=== PATIENT | male | born 1945 | race African-American/Black ===

== ENCOUNTER 2018-12-19 17:10 | Day surgery (SDC) ==
[2018-12-19 18:39] LABS: BASO# 0.06 X1000 (0.0-0.2); BASO% 1.1 % (0.0-0.8); EOS# 0.39 X1000 (0.0-0.7); EOS% 7.3 % (0.0-10.0); HEMOGLOBIN 12.6 g/dL (14.0-18.0); LYMPH# 2.04 X1000 (1.2-3.4); MCH 30.1 PG (27-31); MCHC 33.2 g/dL (33-37); MCV 90.9 FL (81-99); MONO# 0.49 X1000 (0.11-0.59); MONO% 9.1 % (1.7-9.3); MPV 10.1 FL (7.4-10.4); NEUT# 2.39 X1000 (1.4-6.5); NEUT% 44.5 % (42.2-75.2); PLT 232 X1000 (130-400); RBC 4.18 XMIL (4.7-6.1); RDW 12.7 % (11.5-14.5); WBC 5.37 X1000 (4.8-10.8)
--- NOTE | 2018-12-19 18:41 | Diag Imaging Result Doc PS360 ---
CHEST-2 VIEWS - 12/19/2018 INDICATION: cough COMPARISON: None FINDINGS: There is mild cardiomegaly. Pulmonary vascularity is top normal. No infiltrates or edema. No pneumothorax or pleural effusion. IMPRESSION: Cardiomegaly. Electronically signed by Major Peterson 12/19/2018 6:38 PM
[2018-12-19 19:01] LABS: AGAP 13; ALBUMIN 4.1 g/dL (3.5-5.0); ALKALINE PHOSPHATASE 91 U/L (32-122); BUN 15 mg/dL (8-22); CALCIUM 9.4 mg/dL (8.8-10.2); CHLORIDE 104 mmol/L (98-107); COSMO 286; CREATININE 0.9 mg/dL (0.7-1.2); ESTIMATED GFR > 60; GLUCOSE 176 mg/dL (70-104); GOT 53 U/L (10-34); GPT 92 U/L (10-44); POTASSIUM 4.4 mmol/L (3.5-5.1); SODIUM 141 mmol/L (136-145); TCO2 24 mmol/L (25-35); TOTAL PROTEIN 6.7 g/dL (6.3-8.3)
[2018-12-19] MEDS ORDERED: TYLENOL PO PRN ×2 (20:12→20:13)
[2018-12-19] MEDS ORDERED: AMBIEN PO PRN (20:12)
[2018-12-19] MEDS ORDERED: ZOFRAN IV PRN ×2 (20:12→20:13)
[2018-12-19] MEDS ORDERED: LASIX IV SCH (20:15)
[2018-12-19] MEDS ORDERED: LOVENOX SUBQ SCH (20:15)
--- NOTE | 2018-12-20 01:16 | HISTORY AND PHYSICAL ---
CHIEF COMPLAINT: Shortness of breath. HISTORY OF PRESENT ILLNESS: Patient is a 73-year-old male who denies any previous cardiac issues. States that he has increased work of breathing, shortness of breath, all with exertion. Notes that symptoms have been going on for 3 weeks. Denies any real chest pains. Does states he has a history of allergy. He is a nonsmoker. In fact, states he has never smoked. ALLERGIES: No known drug allergies. MEDICATIONS: No current active medication list. We will address when it is available. PAST MEDICAL HISTORY: He denies any previous cardiac issues. Denies congestive heart failure, COPD. REVIEW OF SYSTEMS: As noted above. Prior to 3 weeks, the patient states that he felt fine. No chest pain. No shortness of breath. No palpitations. Denies any dysuria, urinary frequency, urgency, hesitancy, polyuria or polydipsia. Denies any skin rashes, weight loss or weight gain. SOCIAL HISTORY: Patient is a nonsmoker, nondrinker. FAMILY HISTORY: Positive for COPD. PHYSICAL EXAMINATION: VITAL SIGNS: Temperature 98 degrees, pulse 96, respiratory 18, BP 142/85, saturation 97% on room air. GENERAL: Patient is awake, alert, very pleasant talk with. No current respiratory distress. HEENT: Normocephalic. NECK: Supple. CARDIOVASCULAR: Regular rate. CHEST: Clear. No crackles. No wheezing. ABDOMEN: Soft. EXTREMITIES: Trace edema to 1+ bilateral lower extremities. ASSESSMENT: 1. Hypertension. 2. Cardiomegaly. 3. Shortness of breath. 4. Elevated transaminases. 5. Hyperglycemia. 6. Pedal edema. PLAN: We will admit patient to the hospital, rule out [place]. Check a hemoglobin A1c as he does have an elevated blood sugar. We will check an echocardiogram as his BNP is elevated and he has pedal edema as well as cardiomegaly. He certainly could have congestive heart failure. We will place him on Lasix and we will follow. cc: Hector oJhnson MD
[2018-12-20 03:45] LABS: HEMATOCRIT 37.5 % (42.0-52.0); HEMOGLOBIN 12.5 g/dL (14.0-18.0); MCH 30.4 PG (27-31); MCHC 33.3 g/dL (33-37); MCV 91.2 FL (81-99); MPV 10.2 FL (7.4-10.4); RBC 4.11 XMIL (4.7-6.1); RDW 12.8 % (11.5-14.5); WBC 5.05 X1000 (4.8-10.8)
[2018-12-20 04:44] LABS: AGAP 12; ALBUMIN 3.9 g/dL (3.5-5.0); ALKALINE PHOSPHATASE 85 U/L (32-122); BUN 15 mg/dL (8-22); CALCIUM 9.5 mg/dL (8.8-10.2); CHLORIDE 107 mmol/L (98-107); COSMO 294; CREATININE 0.9 mg/dL (0.7-1.2); ESTIMATED GFR > 60; GLUCOSE 172 mg/dL (70-104); GOT 36 U/L (10-34); GPT 77 U/L (10-44); POTASSIUM 4.1 mmol/L (3.5-5.1); SODIUM 145 mmol/L (136-145); TCO2 26 mmol/L (25-35); TOTAL PROTEIN 6.3 g/dL (6.3-8.3)
[2018-12-20 04:45] LABS: HEMOGLOBIN A1C 6.4 % (4.8-6.0)
[2018-12-20 04:46] LABS: CHOLESTEROL 100 mg/dL (0-200); HDL 45 mg/dL (35-55); LDL 43 mg/dL; MAGNESIUM 1.8 mg/dL (1.5-2.7); TRIGLYCERIDES 59 mg/dL (39-160); VLDL 12 mg/dL
--- NOTE | 2018-12-20 08:30 | EKG Report ---
Test Performed on : 12/19/2018 7:26:14 PM Test Reason : shortness of breath Blood Pressure : / mmHG Vent. Rate : 087 BPM Atrial Rate : 087 BPM P-R Int : 184 ms QRS Dur : 166 ms QT Int : 432 ms P-R-T Axes : 060 004 106 degrees QTc Int : 519 ms Normal sinus rhythm. Left bundle branch block Abnormal ECG No previous ECGs available Unconfirmed Result
[2018-12-20] MEDS ORDERED: PATIENT'S OWN MED PO SCH (09:00)
[2018-12-20] MEDS ORDERED: GLUCOPHAGE PO SCH (09:00)
[2018-12-20] MEDS ORDERED: GLUCOTROL PO SCH (09:00)
[2018-12-20] MEDS ORDERED: ZANTAC PO SCH (09:00)
[2018-12-20] MEDS ORDERED: NORVASC PO SCH (09:00)
[2018-12-20] MEDS ORDERED: LIPITOR PO SCH (09:00)
[2018-12-20] MEDS ORDERED: THERA M PLUS PO SCH (09:00)
[2018-12-20] MEDS ORDERED: ASPIRIN EC PO SCH (09:00)
[2018-12-20] MEDS ORDERED: ZYRTEC PO SCH (09:00)
--- NOTE | 2018-12-20 13:00 | Diag Imaging Result Doc PS360 ---
EXAM: CT ANGIOGRM PULMONARY ARTERIES 12/20/2018 HISTORY: d dimer TECHNIQUE: This exam was performed using automated exposure control, adjustment of mA or kV according to patient size, and/or use of iterative reconstruction technique. COMMENT: 3-D MIPS were performed. There are no filling defects in the pulmonary arteries. The aorta is not well opacified but there is no evidence of aneurysm or dissection. There is a small left pleural effusion. There is dilatation of the left atrium and ventricle. No significant adenopathy is present. There is dependent atelectasis bilaterally and some slight increase in interstitial markings particularly in the lung bases. There is a tiny pulmonary nodule present on image 87 and the left lower lobe and an ill-defined opacity posterior laterally in the left upper lobe on image 56. There are spondylotic changes in the thoracic spine. There is no evidence of acute bony abnormality. IMPRESSION: Left pleural effusion. Mild cardiomegaly and interstitial pulmonary edema. No evidence of pulmonary emboli. Other nonacute findings as described. Electronically signed by Ned Villatoro 12/20/2018 12:58 PM
--- NOTE | 2018-12-20 15:14 | Extremity Venous Study ---
EXAM: Venous U/S Bilateral Legs 12/20/2018 HISTORY: d dimer TECHNIQUE: Compression venous ultrasound of the lower extremities with color Doppler flow COMMENT: The deep veins of the lower extremities are compressible and there is color Doppler flow. There is no evidence of deep venous thrombosis in the visualized superficial veins. IMPRESSION: No evidence of deep venous thrombosis. Electronically signed by Ned Villatoro 12/20/2018 3:11 PM
[2018-12-20 16:41] VITALS: BP 121/74
[2018-12-20] MEDS ORDERED: PRINIVIL PO SCH (21:00)
[2018-12-20] MEDS ORDERED: MINIPRESS PO SCH (21:00)
[2018-12-20] MEDS ORDERED: MELATONIN PO SCH (21:00)
--- NOTE | 2018-12-20 21:45 | PROVIDER DOCUMENTATION ---
This chart was entered by Felicia Auguste Scribe, acting as scribe for Jaren English MD. HPI-Respiratory General - General Chief Complaint: Cough Stated Complaint: SOB Time Seen by Provider: 12/19/18 18:00 Source: patient Allergies/Adverse Reactions: Patient Allergies Allergy/AdvReac Type Severity Reaction Status Date / Time No Known Allergies Allergy Verified 03/19/18 03:46 Home Medications: Home Medication List Medication Instructions Recorded Confirmed Last Taken Type ATORVAstatin [Lipitor] 40 mg PO DAILY 12/19/18 12/19/18 Unknown History Amlodipine Besylate 5 mg PO DAILY 12/19/18 12/19/18 Unknown History Aspirin [Aspirin EC] 81 mg PO DAILY 12/19/18 12/19/18 Unknown History Biotin 5,000 mcg PO DAILY 12/19/18 12/19/18 Unknown History Cetirizine HCl 10 mg PO DAILY 12/19/18 12/19/18 Unknown History Glipizide 20 mg PO QAM 12/19/18 12/19/18 Unknown History Lisinopril 40 mg PO HS 12/19/18 12/19/18 Unknown History Melatonin 10 mg PO QHS PRN 12/19/18 12/19/18 Unknown History Metformin HCl 850 mg PO TID 12/19/18 12/19/18 Unknown History Multivitamin [Tab-A-Taj] 1 tab PO DAILY 12/19/18 12/19/18 Unknown History Prazosin HCl 5 mg PO QHS 12/19/18 12/19/18 Unknown History Ranitidine HCl 150 mg PO BID 12/19/18 12/19/18 Unknown History Furosemide [Lasix] 20 mg PO DAILY PRN PRN #30 tab 12/20/18 Unknown Rx Potassium Chloride 10 meq PO DAILY PRN PRN #30 12/20/18 Unknown Rx tab.er.prt - History of Present Illness-Resp Nature of Presenting Problem: Pt is 73/m presenting to ED w/ SOB and cough w/ exertion only, for the last 3 weeks. He denies any chest pain. Pt has hx of seasonal allergies. Pt is a non- smoker. Quality of Pain: reports: none Severity in ED: reports: mild Onset/Duration: reports: other (2-3 weeks) Timing: reports: intermittent Exposure: reports: unknown cause Cough Quality/Degree: reports: dry cough (dry cough w/ exertion) Episode Frequency: other (w/ exertion) Current Respiratory Medication Therapy: Initiated none Modifying Factors: improves with: nothing Associated Symptoms: reports: cough, shortness of breath, short of breath. denies: chest pain/soreness, fever/chills, flu-like symptoms, wheezing Similar Symptoms Previously?: Yes Recently seen or treated by another doctor?: No Review of Systems - Adult - REVIEW OF SYSTEMS - ADULT Constitutional: reports: no symptoms reported. denies: chills, fever Eyes: reports: no symptoms reported Ears, Nose, Mouth & Throat: reports: no symptoms reported. denies: throat pain Cardiovascular: denies: chest pain Respiratory: reports: no symptoms reported Gastrointestinal: reports: no symptoms reported Genitourinary: reports: no symptoms reported Musculoskeletal: reports: no symptoms reported Integumentary: reports: no symptoms reported Neurological: reports: no symptoms reported. denies: dizziness/vertigo, headache/migraines Psychiatric: reports: no symptoms reported Endocrine: reports: no symptoms reported Hematologic/Lymphatic: reports: no symptoms reported Allergic/Immunologic: reports: no symptoms reported Past History - Adult - PAST MEDICAL HISTORY-ADULT Review of Records: reports: Old Records Reviewed, Nursing Assessment Review, Medications Reviewed, Social history reviewed & non-contributory. - SOCIAL HISTORY Smoking: denies, non-smoker Substance Use: none/never Alcohol Use Frequency: never Living Situation: family Physical Exam-General - PHYSICAL EXAM-ADULT Initial Vital Signs Reviewed: Yes - CONSTITUTIONAL General Appearance: appears well, alert, no apparent distress - EYES Eyes: PERRL/EOMI, pink conjunctivae - HEAD, EARS, NOSE, MOUTH & THROAT HENMT: normocephalic/atraumatic, moist mucous membranes - NECK Neck: non-tender, full range of motion, supple, normal inspection - RESPIRATORY Respiratory: chest non-tender, lungs clear, normal breath sounds. negative: respiratory distress, wheezing - CARDIOVASCULAR Cardiovascular: normal peripheral pulses, regular rate, rhythm, no edema, no gallop, no JVD, no murmur, other (Pt has 2+ edema lower extremities bilaterally) - LYMPHATIC Lymphatic: no adenopathy - MUSCULOSKELETAL Extremity: normal range of motion, non-tender, normal gait, normal inspection - SKIN Integumentary: normal color, warm/dry - NEUROLOGIC Neurologic: grossly normal - PSYCHIATRIC Psych/Mental Status: normal mood/affect, normal thought process, oriented x 3 Progress - PLAN OF CARE/RESULTS Progress/Plan/Lab Results: Orders Category Date Time Status Admit - [facility] Routine AdmDCTranf 12/19/18 20:12 Active Activity - Up with Assistance ORDERED Care 12/19/18 20:12 Active DVT/PE Risk Assess/Protocol [QM] ORDERED Care 12/19/18 20:12 Active Daily Weights 0500 Care 12/19/18 20:12 Active Intake and Output-Strict ORDERED Care 12/19/18 20:12 Active Notify MD if DIRECTED Care 12/19/18 20:12 Active Old records/chart to unit .From other facility Care 12/19/18 20:12 Active Vital Signs Order Q 4-HR ASSESS Care 12/19/18 20:12 Active Z-Document. for Tele Applied ORDERED Care 12/19/18 20:12 Completed Heart Healthy Diet Diet 12/19/18 20:13 Completed CHEST-2 VIEWS [RAD] Stat Exams 12/19/18 17:20 Completed A1C HGB W EST AVG GLUCOSE [CHEM] Routine Lab 12/20/18 02:52 Completed CBC WITH ELECTRONIC DIFF [HEME] Stat Lab 12/19/18 18:26 Completed CBC WITH NO DIFF [HEME] Routine Lab 12/20/18 02:52 Completed CK PROFILE [SP CHEM] Q8H Lab 12/19/18 18:26 Completed CK PROFILE [SP CHEM] Q8H Lab 12/20/18 02:52 Completed CK PROFILE [SP CHEM] Q8H Lab 12/20/18 11:11 Completed COMPREHENSIVE METABOLIC PANEL [CHEM] Routine Lab 12/20/18 02:52 Completed COMPREHENSIVE METABOLIC PANEL [CHEM] Stat Lab 12/19/18 18:26 Completed D-DIMER [COAG] Routine Lab 12/19/18 18:26 Completed LIPID PROFILE W/CALC LDL [LIPIDS] Routine Lab 12/20/18 02:52 Completed MAGNESIUM [CHEM] Routine Lab 12/20/18 02:52 Completed PRO B-NATRIURETIC PEPTIDE Stat Lab 12/19/18 18:26 Completed TROPONIN T Q8H Lab 12/20/18 02:52 Completed TROPONIN T Q8H Lab 12/20/18 11:11 Completed TROPONIN T Stat Lab 12/19/18 18:26 Completed TSH Routine Lab 12/20/18 02:52 Completed Acetaminophen [Tylenol] Med 12/19/18 20:12 Discontinued 650 mg PO Q6H PRN PRN Acetaminophen [Tylenol] Med 12/19/18 20:13 Discontinued 650 mg PO Q6H PRN PRN Enoxaparin [Lovenox] Med 12/19/18 20:15 Discontinued 30 mg SUBQ Q24H Furosemide [Lasix] Med 12/19/18 20:15 Discontinued 40 mg IV Q24H Ondansetron [Zofran] Med 12/19/18 20:13 Discontinued 4 mg IV Q4-6H PRN PRN Ondansetron [Zofran] Med 12/19/18 20:12 Discontinued 4 mg IV Q4H PRN PRN Zolpidem [Ambien] Med 12/19/18 20:12 Discontinued 5 mg PO HS PRN PRN Oxygen Device Routine Oth 12/19/18 20:12 Completed Pulse Oximetry Routine Oth 12/19/18 20:12 Completed Telemetry [OM.EQ] Routine Oth 12/19/18 20:12 Active EKG [EKG] Stat Ther 12/19/18 18:14 Draft Echo Spec/Color Dop W/O Contra Routine Ther 12/20/18 06:14 Completed Transfer/Admit Order [TRANSFER] Routine Transfer 12/19/18 20:17 Completed Result Diagrams: 12/20/18 02:52 12/20/18 02:52 - EKG 1 Time of EKG reading by physician:: 19:26 EKG Read and Signed by:: Jaren English EKG Interpretation (*Must complete 3 of following elements*): Abnormal (normal sinus rhythm, Left bundle branch block, Abnormal) Rate: 78 Rhythm: sinus [place]: normal QRS: normal - CONSULTS/PCP/HOSPITALIST Notification #1 *Consult/PCP/Hospitalist*: Dr. Johnson Time Discussed: 20:11 Consult Disposition: Admit Departure - Departure Date of Disposition Decision: 12/19/18 Time of Disposition Decision: 20:47 DIAGNOSIS: Edema extremities, Shortness of breath Acute on chronic heart failure Qualifiers: Heart failure type: unspecified Qualified Code(s): I50.9 - Heart failure, unspecified Disposition: ADMITTED INPATIENT 09 Certified Medical Emergency: Emergent Condition: Fair - Critical Care Note This patient required my direct & personal management of CC.: No Attestation - Physician/ KAREN Attestation Patient care was provided by Advanced Practice Provider:: No The physician spent face to face time with patient:: Yes Advanced Practice Provider documentation review:: Supervising physician onsite and consulted in the evaluation and care of this patient. The physician did have a face to face encounter with the patient. This chart was documented by the indicated scribe, (Felicia Auguste, [place]) and accurately reflects the services I performed and decisions made by me, Jaren English MD, as attested by the provider's signature.
--- NOTE | 2018-12-21 08:58 | DISCHARGE SUMMARY ---
ADMISSION DATE: 12/19/2018 DISCHARGE DATE: 12/20/2018 DISCHARGE DIAGNOSES: 1. Hypertension, stable. 2. Cardiomegaly, stable. 3. Elevated transaminases. 4. Hyperglycemia. 5. Diabetes with an A1c at 6.4. 6. High cholesterol. CONSULTATIONS: None. PROCEDURES: None. BRIEF HOSPITAL COURSE: The patient is a 73-year-old male who presented to the emergency department with shortness of breath. He was noted to have cardiomegaly on chest x-ray. He was admitted. His blood pressures were controlled. Echocardiogram was performed and reported as normal but I do not have full dictated report. Further workup for pulmonary emboli was also negative. The patient will be discharged home. He will continue his home medications. He is controlling his blood sugars, currently with an A1c at 6.4. Blood pressures are fairly well-controlled at home as well. He will follow up with his primary care provider, at the [facility], in 1-2 weeks, sooner if symptoms worsen or return. cc: Hector Johnson MD
--- NOTE | 2018-12-21 16:45 | ECHO REPORT ---
ORDER DATE: 12/20/2018 ECHOCARDIOGRAPHIC MEASUREMENTS: Interventricular septum 1.5 cm. Left ventricular posterior wall 1.5 cm. Diastolic diameter 5.6 cm. Left atrium 4.3 cm. Aorta 3.5 cm. SUMMARY OF THE TWO-DIMENSIONAL IMAGING: Aortic valve leaflets are trileaflet. Pulmonic valve was normal. Tricuspid valve was normal. Mitral valve leaflets are normal. There is left atrial enlargement. Left ventricle cavity size was normal. There is concentric left ventricular hypertrophy. Estimated ejection fraction of 20% associated with diastolic dysfunction. There is mild mitral regurgitation. Mild to moderate tricuspid regurgitation. Peak velocity across the tricuspid valve was 3.1 m/sec. Pulmonary artery systolic pressure of 49 mmHg. Peak velocity across the aortic valve less than 2 m/sec. By Doppler studies, there is no aortic stenosis or regurgitation. There is no pericardial effusion or obvious intracardiac mass or thrombus seen. cc: MD Hector Thomson MD
== END 2018-12-20 18:19 | disposition home or self-care (01) ==
LOC: P.ED 17:10 → P.MEDSURG 17:10 → P.MED 20:31 → P.MEDSURG 20:46 → P.MED 12-20 18:19
PROVIDERS: ATTEND Family Medicine
CPT/HCPCS: 71020; 71046; 71275; 80053; 80061; 82550; 82948; 83036; 83735; 83880; 84443; 84484; 85025; 85027; 85379; 93005; 93306; 93970; 94761; 96372; 96374; 99285; A9270; J1650; J1940; Q9967; XXXXX

== ENCOUNTER 2018-12-29 10:35 | Inpatient (IN) ==
[2018-12-29] MEDS ORDERED: ASPIRIN PO ONE ×2 (10:42→10:43)
--- NOTE | 2018-12-29 11:07 | Diag Imaging Result Doc PS360 ---
EXAM: CHEST-2 VIEWS HISTORY: CP TECHNIQUE: Two views COMPARISON: 12/19/2018 FINDINGS: The lungs are well expanded. The heart is mildly enlarged. The vessels are not distended. There are no infiltrates. No pleural effusions. IMPRESSION: Mild cardiomegaly. Electronically signed by Sergio Bray 12/29/2018 11:05 AM
[2018-12-29 11:11] LABS: BASO# 0.03 X1000 (0.0-0.2); BASO% 0.5 % (0.0-0.8); EOS# 0.07 X1000 (0.0-0.7); EOS% 1.1 % (0.0-10.0); HEMATOCRIT 41.9 % (42.0-52.0); HEMOGLOBIN 13.9 g/dL (14.0-18.0); IMM GRAN# 0.02 X1000 (0.0-0.04); IMM GRAN% 0.3 % (0.0-0.5); LYMPH# 0.94 X1000 (1.2-3.4); MCH 30.5 PG (27-31); MCHC 33.2 g/dL (33-37); MCV 91.9 FL (81-99); MONO# 0.37 X1000 (0.11-0.59); MONO% 5.9 % (1.7-9.3); NEUT# 4.83 X1000 (1.4-6.5); NEUT% 77.2 % (42.2-75.2); PLT 278 X1000 (130-400); RBC 4.56 XMIL (4.7-6.1); RDW 12.9 % (11.5-14.5); WBC 6.26 X1000 (4.8-10.8)
[2018-12-29 11:18] LABS: INR 1.02; PROTIME 13.9 Seconds (11.0-16.0)
[2018-12-29 11:19] LABS: PTT 28.2 Seconds (22.3-41.8)
[2018-12-29 11:22] LABS: AGAP 15; ALBUMIN 4.6 g/dL (3.5-5.0); ALKALINE PHOSPHATASE 76 U/L (32-122); BUN 15 mg/dL (8-22); CALCIUM 9.2 mg/dL (8.8-10.2); CHLORIDE 99 mmol/L (98-107); CK PROFILE 123 U/L (24-204); COSMO 286; CREATININE 0.9 mg/dL (0.7-1.2); ESTIMATED GFR > 60; GLUCOSE 337 mg/dL (70-104); GOT 19 U/L (10-34); GPT 36 U/L (10-44); POTASSIUM 4.3 mmol/L (3.5-5.1); SODIUM 136 mmol/L (136-145); TCO2 22 mmol/L (25-35); TOTAL PROTEIN 7.3 g/dL (6.3-8.3)
--- NOTE | 2018-12-29 12:34 | EKG Report ---
Test Performed on : 12/29/2018 10:41:35 AM Test Reason : CP Blood Pressure : / mmHG Vent. Rate : 104 BPM Atrial Rate : 104 BPM P-R Int : 160 ms QRS Dur : 166 ms QT Int : 408 ms P-R-T Axes : 059 -30 109 degrees QTc Int : 536 ms Sinus tachycardia. Possible Left atrial enlargement Left axis deviation Left bundle branch block Abnormal ECG When compared with ECG of 19-DEC-2018 19:26, (Unconfirmed) No significant change was found Unconfirmed Result
--- NOTE | 2018-12-29 13:59 | EKG Report ---
Test Performed on : 12/29/2018 1:30:07 PM Test Reason : chest pain Blood Pressure : / mmHG Vent. Rate : 089 BPM Atrial Rate : 089 BPM P-R Int : 172 ms QRS Dur : 166 ms QT Int : 438 ms P-R-T Axes : 065 -15 094 degrees QTc Int : 532 ms Sinus rhythm. with fusion complexes Possible Left atrial enlargement Left bundle branch block Abnormal ECG When compared with ECG of 29-DEC-2018 10:41, (Unconfirmed) fusion complexes are now present Unconfirmed Result
[2018-12-29] MEDS ORDERED: LOVENOX 1 MG/KG SUBQ ONE (14:22)
[2018-12-29] MEDS ORDERED: LOVENOX ONE ×2 (15:07→15:31)
--- NOTE | 2018-12-29 15:18 | EKG Report ---
Test Performed on : 12/29/2018 2:24:23 PM Test Reason : chest pain Blood Pressure : / mmHG Vent. Rate : 092 BPM Atrial Rate : 092 BPM P-R Int : 170 ms QRS Dur : 164 ms QT Int : 426 ms P-R-T Axes : 064 -14 105 degrees QTc Int : 526 ms Normal sinus rhythm. Possible Left atrial enlargement Left bundle branch block Abnormal ECG When compared with ECG of 29-DEC-2018 13:30, (Unconfirmed) fusion complexes are no longer present Unconfirmed Result
[2018-12-29] MEDS ORDERED: MORPHINE IV PRN (18:45)
[2018-12-29] MEDS ORDERED: ZOFRAN IV PRN (18:45)
--- NOTE | 2018-12-29 19:06 | PROVIDER DOCUMENTATION ---
This chart was entered by Simone Purdy Scribe, acting as scribe for Erin Crespo MD. HPI-Chest Pain - General Chief Complaint: Chest Pain Stated Complaint: CHEST PAIN Time Seen by Provider: 12/29/18 10:48 Source: patient Allergies/Adverse Reactions: Patient Allergies Allergy/AdvReac Type Severity Reaction Status Date / Time No Known Allergies Allergy Verified 03/19/18 03:46 Home Medications: Home Medication List Medication Instructions Recorded Confirmed Last Taken Type ATORVAstatin [Lipitor] 40 mg PO DAILY 12/19/18 12/19/18 Unknown History Amlodipine Besylate 5 mg PO DAILY 12/19/18 12/19/18 Unknown History Aspirin [Aspirin EC] 81 mg PO DAILY 12/19/18 12/19/18 Unknown History Biotin 5,000 mcg PO DAILY 12/19/18 12/19/18 Unknown History Cetirizine HCl 10 mg PO DAILY 12/19/18 12/19/18 Unknown History Glipizide 20 mg PO QAM 12/19/18 12/19/18 Unknown History Lisinopril 40 mg PO HS 12/19/18 12/19/18 Unknown History Melatonin 10 mg PO QHS PRN 12/19/18 12/19/18 Unknown History Metformin HCl 850 mg PO TID 12/19/18 12/19/18 Unknown History Multivitamin [Tab-A-Taj] 1 tab PO DAILY 12/19/18 12/19/18 Unknown History Prazosin HCl 5 mg PO QHS 12/19/18 12/19/18 Unknown History Ranitidine HCl 150 mg PO BID 12/19/18 12/19/18 Unknown History Furosemide [Lasix] 20 mg PO DAILY PRN PRN #30 tab 12/20/18 Unknown Rx Potassium Chloride 10 meq PO DAILY PRN PRN #30 12/20/18 Unknown Rx tab.er.prt - History of Present Illness-CP Nature of Presenting Problem: 73 yom hx of diabetes and copd presents to ed with sudden onset of chest pain described as pressure this am at 0500. Reports was seen last week with sob and states is feeling better from that. Pt is on lasiks. Reports does have a cough and reports vomited x 1 this am. Denies diaphoresis, sob, n. Location: reports: substernal Chest Pain Radiation: reports: no radiation Quality of Pain: reports: pressure Severity in ED: mild (12/21) Onset/Duration: this morning Timing: still present Nitro Today/Relief: no nitro taken today Aspirin Treatment Today: 81 mg x 1 Similar Symptoms Previously?: No Recently Seen Here or By Another Healthcare Provider: Yes Review of Systems - Adult - REVIEW OF SYSTEMS - ADULT Constitutional: denies: chills, fever, fatique Eyes: reports: no symptoms reported Ears, Nose, Mouth & Throat: denies: ear pain, sinus problem, throat pain Cardiovascular: reports: chest pain. denies: irregular heart rate, orthopnea, syncope Respiratory: reports: cough. denies: dyspnea on exertion, pleurisy, shortness of breath, wheezing Gastrointestinal: reports: vomiting. denies: abdominal pain, diarrhea, nausea Genitourinary: denies: dysuria, discharge, frequency, frequent UTI's, hematuria, hesitency Musculoskeletal: denies: bone pain, joint pain, joint swelling, muscle aches Integumentary: reports: no symptoms reported Neurological: reports: no symptoms reported Psychiatric: reports: no symptoms reported Endocrine: reports: no symptoms reported Hematologic/Lymphatic: reports: no symptoms reported Allergic/Immunologic: reports: no symptoms reported All Other Systems: Reviewed and Negative Past History - Adult - PAST MEDICAL HISTORY-ADULT Review of Records: reports: Nursing Assessment Review, Medications Reviewed Major Childhood Illnesses: reports: denies history Cardiovascular: reports: denies history Respiratory: reports: COPD Gastrointestinal: reports: denies history Obstetrical/Gynecological: reports: denies history Genitourinary: reports: denies history Musculoskeletal: reports: denies history Neurological: reports: denies history Endocrine/Immune: reports: Diabetes Other Conditions: reports: denies history - IMMUNIZATION STATUS Childhood Immunizations: See Nurse Assessment Flu Vaccine: See Nurse Assessment - FAMILY HISTORY Family History: reviewed, not pertinent - SOCIAL HISTORY Smoking: denies Substance Use: none/never Physical Exam-General - PHYSICAL EXAM-ADULT Initial Vital Signs Reviewed: Yes - CONSTITUTIONAL General Appearance: appears well, alert, no apparent distress - EYES Eyes: PERRL/EOMI, pink conjunctivae - HEAD, EARS, NOSE, MOUTH & THROAT HENMT: normocephalic/atraumatic, moist mucous membranes, normal ENT inspection, TMs normal, pharynx normal - NECK Neck: non-tender, full range of motion, supple, normal inspection - RESPIRATORY Respiratory: chest non-tender, lungs clear, normal breath sounds, no pleuratic chest pain, no respiratory distress, no accessory muscle use - CARDIOVASCULAR Cardiovascular: normal peripheral pulses, regular rate, rhythm, JVD (right) - GASTROINTESTINAL (ABDOMEN) Abdominal Exam: normal bowel sounds, non tender, soft, no organomegaly, no pulsatile mass - MUSCULOSKELETAL Back Exam: normal inspection, no CVA tenderness, no vertebral tenderness Extremity: normal range of motion, non-tender, normal gait, pedal edema (bilateral 1+ pitting) - SKIN Integumentary: normal color, normal turgor, warm/dry - NEUROLOGIC 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, grossly normal, no motor/sensory deficits - PSYCHIATRIC Psych/Mental Status: normal mood/affect, normal thought content, normal thought process, oriented x 3 - HEART Score HEART Score: History: Moderately Suspicious HEART Score: ECG: Non-Specific Repolarization Disturbance/LBBB/PM HEART Score: Age: > or = 65 Years HEART Score: Risk Factors for Atherosclerotic Disease: 1 or 2 Risk Factors HEART Score: Troponin: < or = Normal Limit Total HEART Score:: 5 Progress - PLAN OF CARE/RESULTS Progress/Plan/Lab Results: Vital Signs - 8 hr 12/29/18 12:30 12/29/18 13:30 12/29/18 15:30 Temperature 98 F 98.3 F Pulse Rate 84 85 85 Respiratory Rate 18 18 18 Blood Pressure 127/83 120/79 126/86 O2 Sat by Pulse Oximetry 94 L 98 95 Laboratory Results - last 24 hr 12/29/18 12/29/18 12/29/18 10:49 10:49 10:49 WBC RBC Hgb Hct MCV MCH MCHC RDW Std Deviation Plt Count MPV Immature Gran % (Auto) Neut % (Auto) Lymph % (Auto) Leake % (Auto) Eos % (Auto) Baso % (Auto) Immature Gran # (Auto) Neut # (Auto) Lymph # (Auto) Leake # (Auto) Eos # (Auto) Baso # (Auto) PT INR PTT (Actin FS) Sodium 136 Potassium 4.3 Chloride 99 Carbon Dioxide 22 L Anion Gap 15 BUN 15 Creatinine 0.9 Estimated GFR/1.73 m2 > 60 BUN/Creatinine Ratio 17 Glucose 337 H Calculated Osmolality 286 Calcium 9.2 Total Bilirubin 0.50 AST 19 ALT 36 Alkaline Phosphatase 76 Creatine Kinase 123 Troponin T < 0.010 Fdl-P-Shwgmvmksiv Pept 2206 H Total Protein 7.3 Albumin 4.6 Globulin 3.0 Albumin/Globulin Ratio 2.0 12/29/18 12/29/18 12/29/18 10:49 10:49 13:27 WBC 6.26 RBC 4.56 L Hgb 13.9 L Hct 41.9 L MCV 91.9 MCH 30.5 MCHC 33.2 RDW Std Deviation 12.9 Plt Count 278 MPV 10.0 Immature Gran % (Auto) 0.3 Neut % (Auto) 77.2 H Lymph % (Auto) 15.0 L Leake % (Auto) 5.9 Eos % (Auto) 1.1 Baso % (Auto) 0.5 Immature Gran # (Auto) 0.02 Neut # (Auto) 4.83 Lymph # (Auto) 0.94 L Leake # (Auto) 0.37 Eos # (Auto) 0.07 Baso # (Auto) 0.03 PT 13.9 INR 1.02 PTT (Actin FS) 28.2 Sodium Potassium Chloride Carbon Dioxide Anion Gap BUN Creatinine Estimated GFR/1.73 m2 BUN/Creatinine Ratio Glucose Calculated Osmolality Calcium Total Bilirubin AST ALT Alkaline Phosphatase Creatine Kinase 109 Troponin T Shk-I-Gdslqzzefol Pept Total Protein Albumin Globulin Albumin/Globulin Ratio 12/29/18 12/29/18 12/29/18 13:27 17:15 17:15 WBC RBC Hgb Hct MCV MCH MCHC RDW Std Deviation Plt Count MPV Immature Gran % (Auto) Neut % (Auto) Lymph % (Auto) Leake % (Auto) Eos % (Auto) Baso % (Auto) Immature Gran # (Auto) Neut # (Auto) Lymph # (Auto) Leake # (Auto) Eos # (Auto) Baso # (Auto) PT INR PTT (Actin FS) Sodium Potassium Chloride Carbon Dioxide Anion Gap BUN Creatinine Estimated GFR/1.73 m2 BUN/Creatinine Ratio Glucose Calculated Osmolality Calcium Total Bilirubin AST ALT Alkaline Phosphatase Creatine Kinase 119 Troponin T < 0.010 0.023 D Xbc-W-[place] Pept Total Protein Albumin Globulin Albumin/Globulin Ratio Orders Category Date Time Status Admit - [facility] Routine AdmDCTranf 12/29/18 18:45 Active Activity - Up Ad Stacie ORDERED Care 12/29/18 18:45 Active Cardiac Monitoring DIRECTED Care 12/29/18 10:43 Active Cardiac Monitoring DIRECTED Care 12/29/18 10:43 Active Neurological Check ORDERED Care 12/29/18 18:45 Active Oxygen Therapy- ED Nursing DIRECTED Care 12/29/18 10:43 Active Oxygen Therapy- ED Nursing DIRECTED Care 12/29/18 10:43 Active Saline Loc NOW Care 12/29/18 10:43 Active Saline Loc NOW Care 12/29/18 10:43 Active Vital Signs Order ROUTINE Care 12/29/18 18:45 Active Heart Healthy Diet Diet 12/29/18 18:47 Active CHEST-2 VIEWS [RAD] Stat Exams 12/29/18 10:43 Completed CBC WITH ELECTRONIC DIFF [HEME] Stat Lab 12/29/18 10:49 Completed CK PROFILE [SP CHEM] Stat Lab 12/29/18 10:49 Completed CK PROFILE [SP CHEM] Stat Lab 12/29/18 13:27 Completed CK PROFILE [SP CHEM] Stat Lab 12/29/18 17:15 Completed COMPREHENSIVE METABOLIC PANEL [CHEM] Stat Lab 12/29/18 10:49 Completed PRO B-NATRIURETIC PEPTIDE Stat Lab 12/29/18 10:49 Completed PROTIME WITH INR [COAG] Stat Lab 12/29/18 10:49 Completed PTT [COAG] Stat Lab 12/29/18 10:49 Completed TROPONIN T RTQ3H Lab 12/29/18 19:00 Ordered TROPONIN T RTQ3H Lab 12/29/18 22:00 Ordered TROPONIN T Stat Lab 12/29/18 10:49 Completed TROPONIN T Stat Lab 12/29/18 13:27 Completed TROPONIN T Stat Lab 12/29/18 17:15 Completed Aspirin Med 12/29/18 10:42 Discontinued 325 mg PO NOW ONE Aspirin Med 12/29/18 10:43 Discontinued 325 mg PO NOW ONE Enoxaparin 1 mg/kg [Lovenox 1 mg/kg] Med 12/29/18 14:22 Discontinued 1 each SUBQ NOW ONE Enoxaparin [Lovenox] Med 12/29/18 15:31 Discontinued 100 mg .ROUTE .STK-MED ONE Enoxaparin [Lovenox] Med 12/29/18 15:07 Discontinued 80 mg .ROUTE .STK-MED ONE Furosemide [Lasix] Med 12/29/18 19:00 Active 40 mg PO DAILY Morphine Med 12/29/18 18:45 Active 2 mg IV Q2H PRN PRN Ondansetron [Zofran] Med 12/29/18 18:45 Active 4 mg IV Q4H PRN PRN CP/SOB/Palp >45 yrs of Age Stat Oth 12/29/18 10:42 Ordered CP/SOB/Palp >45 yrs of Age Stat Oth 12/29/18 10:43 Ordered Oxygen Device Routine Oth 12/29/18 18:46 Active EKG [EKG] Stat Ther 12/29/18 10:43 Draft EKG [EKG] Stat Ther 12/29/18 10:43 Draft EKG [EKG] Stat Ther 12/29/18 13:20 Draft EKG [EKG] Stat Ther 12/29/18 16:28 Ordered Transfer/Admit Order [TRANSFER] Routine Transfer 12/29/18 18:44 Ordered [address] [facility] paiged [address] [facility] faxed paperwork for the 2nd time to us, and we were told to have Provider fill the paperwork out and send back to them and then they would decide what to do with patient as far as transport him or admit him. Result Diagrams: 12/29/18 10:49 12/29/18 10:49 - EKG 1 Time of EKG reading by physician:: 10:41 EKG Read and Signed by:: Erin Crespo EKG Interpretation (*Must complete 3 of following elements*): Abnormal (poss lae) Rate: 104 Rhythm: sinus tachy [place]oy: left QRS: LBB [place] Interval: normal ST Wave: normal 2 Time of EKG reading by physician:: 13:30 EKG Read and Signed by:: Erin Crespo EKG Interpretation (*Must complete 3 of following elements*): Abnormal (poss lae) Rate: 89 Rhythm: sinus with fusion complexes [place]oy: normal QRS: LBB [place] Interval: normal ST Wave: normal - XRAY 1 XRAY: Bilateral XRAY Study: Chest Impression: Abnormal (IMPRESSION: Mild cardiomegaly. Electronically signed by Sergio Bray 12/29/2018 11:05 AM) Departure - Departure Date of Disposition Decision: 12/29/18 Time of Disposition Decision: 15:32 DIAGNOSIS: CHF (congestive heart failure), Chest pain Disposition: ADMITTED INPATIENT 09 Certified Medical Emergency: Emergent Condition: Stable Referrals and Follow-Ups: None,PCP [Primary Care Provider] - - Critical Care Note This patient required my direct & personal management of CC.: No Attestation - Physician/ KAREN Attestation Patient care was provided by Advanced Practice Provider:: No The physician spent face to face time with patient:: Yes Advanced Practice Provider documentation review:: Supervising physician onsite and consulted in the evaluation and care of this patient. The physician did have a face to face encounter with the patient. This chart was documented by the indicated scribe, (Simone Purdy Scribe) and accurately reflects the services I performed and decisions made by me, Erin Crespo MD, as attested by the provider's signature.
[2018-12-29] MEDS: LASIX PO SCH (19:11)
[2018-12-29] MEDS: HUMALOG (PARKWAY) SUBQ SCH (22:04)
[2018-12-30] MEDS: HUMALOG (PARKWAY) SUBQ SCH ×4 (06:25→19:59)
[2018-12-30] MEDS ORDERED: ZANTAC PO PRN (08:20)
[2018-12-30] MEDS ORDERED: MELATONIN PO PRN (08:20)
[2018-12-30] MEDS ORDERED: ZYRTEC PO PRN (08:20)
--- NOTE | 2018-12-30 08:54 | EKG Report ---
Test Performed on : 12/30/2018 08:33:15 AM Test Reason : CHEST PAIN Blood Pressure : / mmHG Vent. Rate : 096 BPM Atrial Rate : 096 BPM P-R Int : 164 ms QRS Dur : 166 ms QT Int : 426 ms P-R-T Axes : 061 005 135 degrees QTc Int : 538 ms Normal sinus rhythm. Possible Left atrial enlargement Left bundle branch block Abnormal ECG When compared with ECG of 29-DEC-2018 14:24, (Unconfirmed) No significant change was found Unconfirmed Result
[2018-12-30] MEDS ORDERED: NORVASC PO SCH (09:00)
[2018-12-30] MEDS ORDERED: THERA M PLUS PO SCH (09:00)
[2018-12-30] MEDS ORDERED: ASPIRIN EC PO SCH (09:00)
[2018-12-30] MEDS: LASIX PO SCH (09:21)
--- NOTE | 2018-12-30 14:19 | CARDIOLOGY CONSULTATION ---
DATE: 12/30/2018 SUBJECTIVE: Mr. Neil is a 73-year-old gentleman who has severe LV dysfunction, hypertension comes with complaints of increasing shortness of breath. He has had shortness of breath off and on for some time, he says over the last year or so. He was recently admitted and discharged with increasing shortness of breath. However, this admission he has noticed increasing shortness of breath and chest discomfort. He describes his chest pain as tightness which is mild in character but associated with a heaviness feature as well which is mild, not radiating to the back or down the arms. This has been going on intermittently off and on. The patient is admitted. He has been ruled out for myocardial infarction by cardiac enzymes. Patient is awaiting transfer to the [facility]. REVIEW OF SYSTEMS: A 14 point review of system was done.GI System: There is no history of nausea, vomiting, diarrhea. There is no history of hematemesis or melena. Central nervous system: No focal weakness to suggest a CVA or TIA. PAST MEDICAL HISTORY: 1. Hypertension. 2. Severe LV dysfunction. 3. History of heart failure. 4. Diabetes. SOCIAL HISTORY: The patient is a nonsmoker, nondrinker. CURRENT MEDICATIONS: Home medications include Lasix 20, potassium supplement, amlodipine 5, melatonin, prazosin 5, aspirin 81 mg a day, biotin, metformin 850, glipizide 10, atorvastatin 40, cetirizine 10, lisinopril 40, ranitidine. PHYSICAL EXAMINATION: Vital Signs: Blood pressure was 120/80. Cardiovascular System: No jugular venous pressure. There was no thyromegaly. No carotid bruit. First and second heart sounds were heard. There is faint systolic murmur. Respiratory System: Normal air entry. There were few scattered crepitations. Abdomen: Soft, nontender. There was no guarding or rigidity. Bowel sounds were heard. Central nervous system: Alert and was moving all 4 extremities. Extremities: Examination of extremities revealed no pedal edema. HEENT: Atraumatic, normocephalic. Pupils were equal and reacting to light. LABORATORY STUDIES: Cardiac enzymes were negative. Sodium 136, potassium 4.3, BUN 15, creatinine 0.9. ProBNP 2206. ASSESSMENT AND PLAN: Mr. Doc Neil is a 73-year-old, black gentleman with history of hypertension, diabetes, left ventricular dysfunction, history of systolic heart failure. He comes in with complaints of increasing episodes of chest pain and shortness of breath. 1. Patient is awaiting transfer to the [facility]. Would recommend a right and left heart catheterization which he will have done at the [facility]. 2. As far as medications are concerned, given his LV dysfunction, we will discontinue the prazosin and amlodipine and start him on Coreg 6.25 mg twice daily in addition to MIKE inhibitors. 3. He is on Lasix. Would recommend continuing Lasix. 4. Diabetes. Continue medications which he had been taking at home. 5. He has been on aspirin 81 mg a day. I have not made any changes. 6. He is on Lipitor 40 for lipid lowering purposes. Would recommend continuing the same. Thank you for the consult. We will follow hospital course. cc: Seymour Espino MD
--- NOTE | 2018-12-30 16:55 | HISTORY AND PHYSICAL ---
CHIEF COMPLAINT: Chest pain. HISTORY OF PRESENT ILLNESS: This is a 73-year-old gentleman with a history of severe LV dysfunction with an EF of 20% in December 2018, hypertension, who comes in with persistent shortness of breath over the last 6 weeks as well as a new onset of chest pressure. He was hospitalized 2 weeks prior with shortness of breath. He was noted to have cardiomegaly on his EKG. Therefore, an echocardiogram was performed. He was found to have severe LV dysfunction. He was diuresed over greater than 2 L, shortness of breath resolved, and he was discharged home. He stated within 24 hours shortness of breath recurred and has been persistent, as well as lower extremity edema. Although he did develop a new onset of chest pain, this started about 5 o'clock a.m. on the . He stated it was a pressure-type pain that felt like something was sitting on his chest. It was a 3/10 to 4/10 at its worst. At present, he has no pain. He denies any radiation to the neck, back, or arms. He denies any nausea/vomiting or palpitations. He was ruled out for UT by cardiac enzymes. He is being admitted to ICU for further evaluation. PAST MEDICAL HISTORY: 1. Hypertension. 2. Severe LV dysfunction, with an EF of 20% in December 2018. 3. Prior history of heart failure. 4. Diabetes mellitus. SOCIAL HISTORY: The patient denies any alcohol, tobacco, or illicit drug use. ALLERGIES: No known drug allergies. HOME MEDICATIONS: A list will be obtained by the nursing staff. Once reviewed, we will restart it as appropriate. REVIEW OF SYSTEMS: Discussed with patient with pertinent positives stated in the HPI. He denied any syncope, dizziness, any palpitations, any nausea/vomiting, diarrhea, constipation, black or bloody vomitus or stools, any hematuria, dysuria, frequency, urgency. PHYSICAL EXAMINATION: GENERAL: This is a 73-year-old gentleman, who is lying in the bed in ICU in no distress. VITAL SIGNS: Blood pressure is 114/81 with a heart rate of 86, respirations are 17, temperature is 97.7 degrees with room air saturations 96% to 98%. EYES: Pupils are equal, round, and react to light. EOMs are intact. Sclerae are anicteric. HENT: Head is normocephalic, atraumatic. Mucous membranes are moist. NECK: Supple with trachea midline. He has no JVD. CARDIOVASCULAR: Regular rate and rhythm. S1 and S2 appreciated. He does have a 1/6 to 2/6 systolic murmur. He has no lower extremity edema with peripheral pulses palpable x4 extremities. Calves are nontender to palpation. PULMONARY: Breath sounds are clear with no increased work of breathing noted. Chest wall is nontender to palpation. GASTROINTESTINAL: Abdomen is soft, nontender, nondistended with bowel sounds in all 4 quadrants. NEUROLOGIC: He is alert and oriented x3. SKIN: Warm and dry. DIAGNOSTIC STUDIES: WBC is 6.2 with hemoglobin 13.9, hematocrit 41.9, and platelets of 278,000. Sodium is 136, potassium 4.3, BUN 15, creatinine 0.9 with a glucose of 330. Troponins have been negative on multiple occasions with CPK ranging from 109 to 126. Chest x-ray revealed mild cardiomegaly. Lungs are well expanded. Heart is mildly enlarged. Vessels are not distended. There are no infiltrates. No pleural effusions. EKG reveals a left bundle branch block which is persistent. ASSESSMENT AND PLAN: Mr. Neil is a 73-year-old gentleman with a history of hypertension, diabetes, and left ventricular dysfunction, who presents with a new episode of chest pain as well as shortness of breath. 1. Chest pain. The patient has been ruled out with enzymes. EKGs are stable with a left bundle branch block. We will consult Cardiology for evaluation. Continue to monitor in ICU. 2. Left ventricular (LV) dysfunction with an ejection fraction (EF) of 20% in December 2018. We will continue with diuresis. Continue with his MIKE and further medicines will be per Cardiology. 3. Diabetes mellitus. At present, he is on patterned blood glucose with sliding scale insulin, which will continue. 4. History of chronic obstructive pulmonary disease. DuoNeb q.4 h. as needed. The patient requested to be transferred to the [place]. They had no bed. We will continue with his care, and we are awaiting a call back from their transfer center. Further treatments pending hospital course. Dictated by ELLA Harris for Hector Johnson MD This chart was documented by, ELLA Harris and accurately reflects the services performed, treatment plan and medical decisions as attested by the providers signature Hector Johnson MD. cc: ELLA Harris MD
[2018-12-30 19:47] VITALS: BP 119/78
[2018-12-30] MEDS ORDERED: PRINIVIL PO SCH (21:00)
[2018-12-30] MEDS ORDERED: MINIPRESS PO SCH (21:00)
[2018-12-30] MEDS ORDERED: COREG PO SCH (21:00)
[2018-12-30] MEDS ORDERED: LIPITOR PO SCH (21:00)
--- NOTE | 2018-12-30 23:11 | HISTORY AND PHYSICAL ---
ADDENDUM: The patient was seen and examined. Thankfully, he is improved. He is having some chest pain. [facility] but [facility]. We will admit him to the hospital, rule out CT and will follow. cc: Hector Johnson MD
--- NOTE | 2018-12-30 23:30 | DISCHARGE SUMMARY ---
ADMISSION DATE: 12/29/2018 DISCHARGE DATE: 12/30/2018 DISCHARGE DIAGNOSES: 1. Chest pain. 2. Hypercholesterolemia. 3. Hypertension. 4. Diabetes. 5. Benign prostatic hypertrophy. 6. Chronic obstructive pulmonary disease. CONSULTATIONS: None. PROCEDURES: None. BRIEF HOSPITAL COURSE: The patient is a 73-year-old male who presented to the hospital. He notes that his chest pain is actually improved, although his troponin has trended up very slightly. He certainly needs to have a heart catheterization to resolve any questions as to whether this is coronary artery disease. We have discussed with the [facility], and they do have a bed available today. We will refer him to be transferred there for the testing. DISPOSITION: The patient will be transferred from our hospital to the [facility] for further testing. cc: Hector Johnson MD
== END 2018-12-30 20:35 | DRG 313 ==
LOC: P.ED 10:35 → P.ICU 19:31
PROVIDERS: ATTEND Family Medicine
CPT/HCPCS: 71020; 71046; 80053; 82550; 82948; 83880; 84484; 85025; 85610; 85730; 93005; 96372; 99285; A9270; J1650; J1815; XXXXX